=== PATIENT | female | born 1945 ===

== ENCOUNTER 2020-08-12 06:12 | Day surgery (SDC) | payer OTHER ==
[~2020-08-12 06:12] MED LIST: ACID REDUCER20 M1 PO; COZAAR50 MG PO; LIPITOR20 MG PO; MESALAMINE800 MG PO; MILLIPRED5 MG PO; PRESERVISION A1 EAC2 PO; VITAMIN D310 MCG/1 M PO
== END 2020-08-12 14:05 | disposition home or self-care (01) ==
LOC: CIR.AMB 06:12
PROVIDERS: ATTEND Obstetrics & Gynecology Gynecology
DX: N21.0 Calculus in bladder (principal); Z20.828 Contact with and (suspected) exposure to other viral communicable diseases